=== PATIENT | female | born 1975 | race African-American/Black ===

== ENCOUNTER 2017-02-24 21:34 | Outpatient (CLI) | payer OTHER ==
[2017-02-24 22:13] VITALS: BP 118/64
[2017-02-24] MEDS ORDERED: HYDROmorphone 0.5 MG/0.5 ML SYRINGE IM SCH (22:20)
[2017-02-24 22:22] LABS: BILIRUBIN,URINE NEGATIVE (NEGATIVE)
[2017-02-24] MEDS ORDERED: HYDROmorphone 0.5 MG/0.5 ML SYRINGE ONE (22:23)
[2017-02-24 22:37] LABS: UR CULTURE IF IND NOT INDICATED; WBC,URINE 0-3 /HPF (0-5)
[2017-02-25] MEDS ORDERED: ACETAMINOPHEN 1,000 MG/100 ML 100 ML IV ONE (00:54)
[2017-02-25] MEDS ORDERED: HYDROmorphone 1 MG/ML SYRINGE ONE (02:51)
[2017-02-25] MEDS ORDERED: SODIUM CHLORIDE FLUSH 0.9% 10 ML SYRINGE IVP ONE (04:23)
== END 2017-02-24 23:30 | disposition home or self-care (01) ==
LOC: WFO 21:34 → FBP 21:38 → WFO 23:30
PROVIDERS: ATTEND Obstetrics & Gynecology
DX: O26.612 Liver and biliary tract disorders in pregnancy, second trimester (principal); K80.50 Calculus of bile duct without cholangitis or cholecystitis without obstruction; Z3A.27 27 weeks gestation of pregnancy
CPT/HCPCS: 81001; 87086; 96372; 99212

== ENCOUNTER 2017-02-24 23:34 | Observation (INO) | payer OTHER ==
[2017-02-25 00:26] LABS: BASOPHILS # (AUTO) 0.1 10^3/uL (0.0-0.1); BASOPHILS % (AUTO) 0.5 %; HCT - HEMATOCRIT 33.8 % (37.0-47.0); HGB - HEMOGLOBIN 11.1 g/dL (12.0-16.0); LYMPHOCYTES # (AUTO) 0.8 10^3/uL (1.5-3.5); LYMPHOCYTES % (AUTO) 5.3 %; MEAN CORPUSCULAR HEMOGLOBIN 28.3 pg (27.0-31.0); MEAN CORPUSCULAR HGB CONC 32.9 g/dL (32.0-36.0); MEAN PLATELET VOLUME 6.9 fL (7.9-10.8); MONOCYTES # (AUTO) 0.7 10^3/uL (0.0-1.0); MONOCYTES % (AUTO) 4.5 %; NEUTROPHILS # (AUTO) 14.3 10^3/uL (1.5-6.6); NEUTROPHILS % (AUTO) 89.7 %; RED BLOOD COUNT 3.93 10^6/uL (4.20-5.40); RED CELL DISTRIBUTION WIDTH 15.8 % (12.0-15.0); UNCORRECTED WHITE BLOOD COUNT 15.9 x10^3/uL; WHITE BLOOD COUNT 15.9 x10^3/uL (4.8-10.8)
[2017-02-25] MEDS ORDERED: SODIUM CHLORIDE 0.9% 1,000 ML IV ONE (00:26)
[2017-02-25 00:42] LABS: ALBUMIN/GLOBULIN RATIO 0.8 (1.0-2.2); BILIRUBIN,DIRECT 0.1 mg/dL (0.1-0.5); BILIRUBIN,TOTAL 0.5 mg/dL (0.2-1.0); BUN - BLOOD UREA NITROGEN < 5 mg/dL (6-20); CALCIUM 8.7 mg/dL (8.5-10.3); CARBON DIOXIDE - CO2 18 mmol/L (21-32); CHLORIDE 101 mmol/L (101-111); CREATININE 0.4 mg/dL (0.4-1.0); GFR - MDRD 214 (>89); GLUCOSE 115 mg/dL (70-100); LIPASE 21 U/L (22-51); POTASSIUM 3.3 mmol/L (3.5-5.0); SODIUM 132 mmol/L (135-145); TOTAL PROTEIN 6.4 g/dL (6.7-8.2)
[2017-02-25] MEDS ORDERED: ACETAMINOPHEN 1,000 MG/100 ML 100 ML IV STA (00:53)
--- NOTE | 2017-02-25 01:28 | ED Physician Documentation ---
PD HPI ABD PAIN - Stated complaint Stated Complaint: BACK,ABDOMINAL PAIN - Chief complaint Chief Complaint: Abd Pain - History obtained from History obtained from: Patient, Family - History of Present Illness Timing - onset: Yesterday Timing - details: Gradual onset, Still present Quality: Cramping, Aching, Sharp Location: RUQ, Epigastric Worsened by: Position, Palpation Associated symptoms: Nausea. No: Fever, Vomiting, Hematemesis Similar symptoms before: Work up / diagnostics, Treatment, Follow up Recently seen: Clinic - Additional information Additional information: Patient is a 41 year old female, 27 weeks who is presenting to the emergency department for abdominal pain. patient went to see her doctor today for pain and was found to have biliary sludge and maybe some stones. patient was treated wiht rocephin, dilaudid, and fentanyl. Patient was sent home on amoxicillin. Patient's pain persisted so she came to the emergency department for evaluation. Review of Systems Constitutional: denies: Fever, Chills Eyes: denies: Decreased vision Ears: reports: Reviewed and negative Nose: reports: Reviewed and negative Throat: reports: Reviewed and negative Cardiac: reports: Reviewed and negative GI: reports: Abdominal Pain, Nausea. denies: Vomiting, Constipation, Diarrhea : denies: Dysuria, Frequency, Discharge, Vaginal bleeding Skin: reports: Reviewed and negative Musculoskeletal: reports: Reviewed and negative Neurologic: reports: Reviewed and negative Immunocompromised: denies: Immunocompromised PD PAST MEDICAL HISTORY - Past Medical History Past Medical History: No - Past Surgical History Past Surgical History: Yes - Present Medications Home Medications: Ambulatory Orders Medication Instructions Recorded Confirmed Aspirin [Adult Low Dose Aspirin EC] 81 mg PO DAILY 02/24/17 02/24/17 Docusate Sodium [Docusate Sodium] 100 mg PO DAILY 02/24/17 02/24/17 Pnv No.121/Iron/Folic Acid 1 tab PO DAILY 02/24/17 02/24/17 [ Multivitamin Tablet] - Allergies Allergies/Adverse Reactions: Allergies Allergy/AdvReac Type Severity Reaction Status Date / Time No Known Drug Allergies Allergy Verified 02/24/17 23:50 - Social History Does the pt smoke?: No Smoking Status: Never smoker Does the pt drink ETOH?: No Does the pt have substance abuse?: No - Immunizations Immunizations are current?: Yes PD ED PE EXPANDED - General General: Alert, In Pain - HEENT HEENT: Dry mucous membranes - Abdomen Abdomen: Tender to palpation, RUQ, Other (gravid abdomen with uturus palpated above the umbilicus) Results - Vitals Vitals: Vital Signs - 24 hr 02/24/17 23:50 Temperature 36.9 C Heart Rate 104 H Respiratory 20 Rate Blood Pressure 144/72 H O2 Saturation 100 Oxygen O2 Source Room air - Labs Labs: Laboratory Tests 02/25/17 02/25/17 00:00 00:00 WBC 15.9 H RBC 3.93 L Hgb 11.1 L Hct 33.8 L MCV 86.0 MCH 28.3 MCHC 32.9 RDW 15.8 H Plt Count 300 MPV 6.9 L Neut # 14.3 H Lymph # 0.8 L [place] # 0.7 Eos # 0.0 Baso # 0.1 Absolute Nucleated RBC 0.01 Nucleated RBC % 0.0 Sodium 132 L Potassium 3.3 L Chloride 101 Carbon Dioxide 18 L Anion Gap 13.0 BUN < 5 L Creatinine 0.4 Estimated GFR (MDRD) 214 Glucose 115 H Calcium 8.7 Total Bilirubin 0.5 Direct Bilirubin 0.1 AST 28 ALT 25 Alkaline Phosphatase 113 Total Protein 6.4 L Albumin 2.9 L Globulin 3.5 Albumin/Globulin Ratio 0.8 L Lipase 21 L - Rads (name of study) abd ultrasound Radiology: Final report received (sonographic findings concerning for acute cholecystitis) PD MEDICAL DECISION MAKING - ED course Complexity details: reviewed old records, reviewed results, re-evaluated patient , considered differential, d/w patient, d/w family, d/w it security consultant ED course: Patient was seen and examined at bedside. IV access was gained and labs were drawn. Ultrasound was ordered. Patient was treated with a fluid bolus and IV acetaminophen. When patient's diagnostics came back patient was found to have acute cholecystitis. Dr. Templeton, covering surgeon was called and the case was discussed with him. patient was placed in observation under his managment for further observation and care. Departure - Departure Disposition: ED Place in Observation Clinical Impression: Cholecystitis Condition: Stable
--- NOTE | 2017-02-25 01:34 | Ultrasound Preliminary Report ---
Exam: US ABDOMEN LIMITED IMPRESSION: 1. Sonographic findings concerning for acute cholecystitis. 2. Liver parenchyma mildly heterogeneous. Common bile duct not well seen. [facility] SITE ID: [id number]
[2017-02-25] MEDS ORDERED: HYDROmorphone 0.5 MG/0.5 ML SYRINGE IVP PRN (01:55)
[2017-02-25] MEDS ORDERED: ONDANSETRON 4 MG/2 ML VIAL IVP PRN (01:59)
--- NOTE | 2017-02-25 02:56 | Ultrasound Report ---
EXAM: ABDOMEN ULTRASOUND LIMITED, RUQ EXAM DATE: 02/25/2017 01:00 AM. CLINICAL HISTORY: History of gallstones, RUQ pain. COMPARISON: None. TECHNIQUE: Real-time scanning was performed with static images obtained. FINDINGS: Liver: Mildly coarse liver parenchyma. No mass or intrahepatic bile duct dilation. Right liver measur es 4.8 cm. Main portal vein flow: Hepatopetal. Gallbladder: Multiple gallstones are noted in the distended gallbladder. Additional sludge is present . Trace pericholecystic fluid. Per report, the patient had a positive sonographic Montano sign. Larges t stone measures 1.9 cm. Biliary System: CBD measures 6.5 mm. No intrahepatic or extrahepatic ductal dilatation. Poorly seen. Right Kidney: Obscured by bowel gas. Length measures 10.2 cm. Mild hydronephrosis. Single intrauterine with a heart rate of 133 bpm. Other: None. IMPRESSION: 1. Sonographic findings concerning for acute cholecystitis. 2. Liver parenchyma mildly heterogeneous. Common bile duct not well-seen. RAYSA Referring Provider Line: [phone] SITE ID: [id number]
[2017-02-25] MEDS: AMPICILLIN/SULBACTAM 3 GM in SODIUM CHLORIDE 0.9% MINIBAG 100 ML IV SCH ×4 (03:00→20:11)
[2017-02-25] MEDS: D5NS W/20 MEQ KCL 1,000 ML IV SCH ×2 (04:20→16:06)
[2017-02-25] MEDS: FAMOTIDINE 20 MG/50 ML 50 ML IV SCH ×2 (04:26→09:44)
[2017-02-25] MEDS: SODIUM CHLORIDE FLUSH 0.9% 10 ML SYRINGE IVP SCH ×2 (04:55→10:58)
[2017-02-25] MEDS: HYDROmorphone 1 MG/ML SYRINGE IVP PRN ×3 (04:58→19:55)
[2017-02-25] MEDS: HYDROmorphone 0.5 MG/0.5 ML SYRINGE IVP PRN ×3 (08:03→15:13)
[2017-02-25] MEDS: SODIUM CHLORIDE FLUSH 0.9% 10 ML SYRINGE IVP PRN ×2 (08:03→15:14)
--- NOTE | 2017-02-25 08:45 | PROVIDER PROGRESS NOTE ---
Subjective - Prog Note Date Prog Note Date: 02/24/17 Prog Note Time: 22:00 - Subjective Pt reports feeling: Worse Subjective: Mrs. Braden is a 41-year-old multiparous woman seen at the [facility] and is currently approximately 28 weeks gestational age. She presents to the emergency room with biliary clinic colic. She was diagnosed this morning with "sludge in her gallbladder" She notes movement. She reports no uterine contractions leakage of fluid or bloody show. No Fever reported. NST findings no uterine contractions and baseline in the 130s with moderate variability and no concerning decelerations. Reactive, Category 1 Assessment: Worsening Biliary Colic that requires surgical evaluation. No current concerns about well-being Plan: Patient transported back to the emergency room for further evaluation and surgical consult There may be a role for Ursodiol 300mg bid Objective - Vital Signs/Intake & Output Vital Signs: Vital Signs x48h Temp Pulse Pulse Resp BP BP Pulse Ox 02/25/17 08:01 98.6 F 114 H 19 137/72 H 98 02/25/17 05:00 98.4 F 110 H 16 127/61 96 02/25/17 03:19 98.2 F 104 H 16 138/72 H 99 02/25/17 02:50 111 H 20 131/66 H 100 Intake & Output: Intake & Output 02/22/17 02/23/17 02/24/17 02/25/17 23:59 23:59 23:59 23:59 Intake Total 1405.000 Balance 1405.000 - Lab Results Fish Bones: 02/25/17 00:00 02/25/17 00:00
[2017-02-25 09:49] LABS: BASOPHILS % (AUTO) 0.2 %; HCT - HEMATOCRIT 31.2 % (37.0-47.0); HGB - HEMOGLOBIN 10.3 g/dL (12.0-16.0); LYMPHOCYTES % (AUTO) 5.4 %; MEAN CORPUSCULAR HEMOGLOBIN 28.7 pg (27.0-31.0); MEAN CORPUSCULAR HGB CONC 33.1 g/dL (32.0-36.0); MEAN CORPUSCULAR VOLUME 86.6 fL (81.0-99.0); MEAN PLATELET VOLUME 6.7 fL (7.9-10.8); MONOCYTES # (AUTO) 0.9 10^3/uL (0.0-1.0); MONOCYTES % (AUTO) 4.5 %; NEUTROPHILS # (AUTO) 17.3 10^3/uL (1.5-6.6); NEUTROPHILS % (AUTO) 89.9 %; RED CELL DISTRIBUTION WIDTH 15.8 % (12.0-15.0); UNCORRECTED WHITE BLOOD COUNT 19.2 x10^3/uL; WHITE BLOOD COUNT 19.2 x10^3/uL (4.8-10.8)
--- NOTE | 2017-02-25 18:53 | HISTORY & PHYSICAL EXAMINATION ---
DATE OF ADMISSION: 02/25/2017 REASON FOR ADMISSION: Acute abdominal pain. HISTORY OF PRESENT ILLNESS: The patient is 41-year-old female, who is 27 weeks' . [place] [facility] [place] the abdominal pain started in the morning. She had an abdominal ult rasound which revealed sludge. The patient was given antibiotics and discharged home. The patient's p ain persisted, and then she came to the [facility] to be further evaluated. PAST SURGICAL HISTORY: Foot surgery. MEDICATIONS: 1. Aspirin. 2. Multivitamins. ALLERGIES TO MEDICATIONS: NONE. HABITS: The patient denies any smoking, alcohol, or drug use. SOCIAL HISTORY: The patient is . MEDICAL PROBLEMS: None. FAMILY HISTORY: Noncontributory. REVIEW OF SYSTEMS: A complete review of systems was obtained. Pertinent positives are gastrointestina l--abdominal pain and nausea. A 12-point review of systems was obtained with pertinent positives disc ussed and all others negative. PHYSICAL EXAMINATION: VITAL SIGNS: Temperature 36.9, heart rate 110, blood pressure 127/61. GENERAL: The patient is lying in bed. She is complaining of pain in her right upper quadrant. HEENT: Eyes--nonicteric. NECK: No lymphadenopathy. HEART: Mildly tachycardic. LUNGS: Clear. ABDOMEN: Soft. Tender in the right upper quadrant. Positive Montano sign. The patient is gravid. The p atient has a reducible small umbilical hernia. EXTREMITIES: No edema or cyanosis. NEUROLOGICAL: The patient appears to be neurologically intact, without any deficits. PSYCHOLOGICAL: The patient is coherent, cooperative, and appears to answer questions fully. DIAGNOSTIC DATA: Ultrasound of the abdomen reveals a gallbladder with numerous gallstones being prese nt. There is a positive sonographic Montano sign. The common bile duct is 6.5 mm. There is trace peric holecystic fluid. I do not see any mention of the wall thickness being noted on the ultrasound. LABORATORY DATA: White blood cell count is 15,000. Liver function tests are within normal limits. ASSESSMENT: 1. Right upper quadrant abdominal pain secondary to acute cholecystitis. I have recommended the patie nt be admitted to the hospital and undergo a laparoscopic cholecystectomy and possible laparotomy. Th e risks and possible complications of the procedure have been explained to her and include, but are n ot limited to, bleeding, infection, anesthesia risk, heart and lung problems, wound healing problems, injuries to abdominal structures such as the common bile duct or intestine causing morbidity and the need for further intervention, hernia formation, and labor. The patient accepts the risks an d wishes to proceed with the procedure. No guarantee was given or implied. 2. Umbilical hernia. We will see if the incision to remove the gallbladder will be in the area of the umbilical hernia or wait. If it is included in the hernia, then the hernia would be repaired primari ly. 3. 27 weeks' . She will be on heart monitoring, and an OB consult will be obtained. The risks and possible complications of labor were discussed with the patient, and this could oc cur without surgery or with surgery. PLAN: 1. The patient will be admitted to the hospital. 2. N.p.o. 3. IV fluids. 4. IV antibiotics. 5. Regulatory Affairs Assistant consult. 6. heart monitoring. 7. Laparoscopic cholecystectomy and possible laparotomy. JOB #: [id number] EXT JOB #:[id number]
[2017-02-25] MEDS ORDERED: BETAMETHASONE 30 MG/5 ML VIAL IM SCH (19:07)
[2017-02-25 19:46] VITALS: BP 130/74
== END 2017-02-25 20:30 | disposition short-term general hospital (02) ==
LOC: ED 23:34 → OBS 02-25 01:55
PROVIDERS: ADMIT Surgery; ATTEND Surgery
DX: O99.612 Diseases of the digestive system complicating pregnancy, second trimester (principal); K80.00 Calculus of gallbladder with acute cholecystitis without obstruction; K42.9 Umbilical hernia without obstruction or gangrene; O09.522 Supervision of elderly multigravida, second trimester; Z3A.27 27 weeks gestation of pregnancy; Z79.82 Long term (current) use of aspirin
CPT/HCPCS: 36415; 76705; 80053; 81001; 82248; 83690; 85025; 96361; 96365; 96366; 96367; 96372; 96375; 96376; 99212; 99218; 99283; 99284; J0131; J1170; 81003; 87086

== ENCOUNTER 2017-02-25 20:47 | Outpatient (CLI) | payer OTHER | END 2017-02-25 20:48 | disposition short-term general hospital (02) | LOC: EMS 20:47 | PROVIDERS: ATTEND Surgery | DX: O99.612 Diseases of the digestive system complicating pregnancy, second trimester (principal) | CPT/HCPCS: A0425; A0426 ==

== ENCOUNTER 2017-04-22 14:34 | Outpatient (CLI) | payer OTHER | END 2017-04-22 14:35 | disposition short-term general hospital (02) | LOC: EMS 14:34 | PROVIDERS: ATTEND Surgery | DX: O42.913 Preterm premature rupture of membranes, unspecified as to length of time between rupture and onset of labor, third trimester (principal); Z3A.35 35 weeks gestation of pregnancy | CPT/HCPCS: A0425; A0428 ==

== ENCOUNTER 2017-06-17 10:15 | Outpatient (CLI) | payer OTHER ==
--- NOTE | 2017-06-17 11:23 | XRAY Report ---
T-TUBE CHOLANGIOGRAM: 06/17/2017. COMPARISON: Abdomen ultrasound 02/25/2017. INDICATION: Please evaluate for patency of the cystic duct. TECHNIQUE: Fluoroscopic cholangiogram was performed using the patient's T-tube and Gastrografin. FINDINGS: There are filling defects in the gallbladder, likely representing gallstones. The cystic duct, common hepatic duct, and common bile duct are widely patent without visualized filling defects. The common bile duct appears to taper normally near the sphincter of Oddi. Contrast enters the duodenum without delay. IMPRESSION: THE BILIARY SYSTEM APPEARS PATENT. GALLSTONES ARE NOTED. TD: 06/17/2017 11:22 MTDLisa
== END 2017-06-17 10:16 | disposition home or self-care (01) ==
LOC: DI 10:15
PROVIDERS: ATTEND Surgery
DX: K80.80 Other cholelithiasis without obstruction (principal)
CPT/HCPCS: 76000